=== PATIENT | female | born 1930 | race Caucasian/White ===

== ENCOUNTER 2016-10-12 18:53 | Inpatient (IN) | payer OTHER ==
[~2016-10-12] VITALS: Ht 152.4 cm; Wt 43.0 kg
[~2016-10-12 18:53] MED LIST: GLIP2.5T; MTF1000T; NO NEW MEDS; TRIA1CAP44
[2016-10-13] MEDS ORDERED: KETOROLAC 15 MG INJ ONE (00:54)
[2016-10-13] MEDS ORDERED: morphine 4 MG/ML VIAL ONE ×3 (00:54→05:22)
--- NOTE | 2016-10-13 08:13 | RADRPT ---
PROCEDURE: CT Pelvis without contrast. CLINICAL INDICATION: Status post fall. Pelvic pain. Abnormal x-ray radiograph. TECHNIQUE: CT scan of the pelvis without contrast was performed on a multi-detector high resolutio n CT scanner. The patient was scanned without intravenous contrast. Coronal and sagittal reformatt ed images were obtained from the axial source images. Images were reviewed on a high-resolution PAC S workstation. The total exam CTDI = 4.72 mGy and the DLP = 159.38 mGy-cm. One or more of the following dose reduction techniques were used: - Automated exposure control. - Adjustment of the mA and/or kV according to patient size. - Use of iterative reconstruction technique. COMPARISON: X-ray pelvis 10/13/2016 FINDINGS: CT pelvis: Positive fracture of the right pubis symphysis and right superior pubic ramus is identified. This w as seen on the previous x-ray. Subtle fracture of the left pubis symphysis and the left superior pu bic ramus is seen as well. Only minimal subtle displacement at the fracture sites is seen. Signifi cant adjacent swelling and hemorrhage around the fracture site is present. There probably is another subtle nondisplaced fracture of the anterior margin of the left sacral ala as well. Mild cortical disruption and irregularity with adjacent sclerosis is present at this loca tion. No other bony fracture is seen. The remaining osseous structures are intact. The hip joints are symmetrically unremarkable. The proximal femurs are intact. 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 Mild anterolisthesis of L4 on L5 is present. Significant weeder thinner ior element facet arthropathy of the lower lumbar spine is seen as well. The bladder is distended, but otherwise grossly unremarkable. The uterus is absent. The sigmoid co dwight is distended and filled with air, but is otherwise remarkable for colonic diverticulosis, withou t evidence for diverticulitis. The rectum is unremarkable. The perirectal and presacral spaces are normal. The patient has a large right anterolateral pelvic wall hernia containing mesenteric and om ental fat as well as multiple loops of large and small bowel. No bowel obstruction is seen. Abunda nt atherosclerotic vascular calcifications of the aortoiliac system is identified. The right kidney is partially visualized. No left kidney is visualized. IMPRESSION: 1. Positive fractures of the pubic symphysis and superior pubic ramus bilaterally. 2. Mild adjacent soft tissue swelling and hemorrhage around the fracture site. 3. Sigmoid colon diverticulosis, without evidence for diverticulitis. 4. Benign chronic senescent changes seen elsewhere throughout the study. RPTAT: HMJB .Flex Guallpa MD, Date Time Electronically viewed and signed by .Flex Guallpa MD, on 10/13/2016 07:52 .B/
[2016-10-13 10:00] VITALS: TEMP 98.3
[2016-10-13] MEDS ORDERED: RANI150T5 PO (10:21)
[2016-10-13] MEDS ORDERED: LOSA50TA6 PO (10:22)
[2016-10-13] MEDS ORDERED: GLIM2TAB PO (10:22)
[2016-10-13] MEDS ORDERED: SITA100T8 PO (10:22)
[2016-10-13] MEDS ORDERED: ESCI5TAB PO (10:23)
[2016-10-13] MEDS ORDERED: AMLO5TAB4 PO (10:23)
[2016-10-13] MEDS ORDERED: OXYB5TAB22 PO (10:23)
[2016-10-13] MEDS ORDERED: DIPH1TAB PO (10:24)
[2016-10-13] MEDS ORDERED: CANA100T PO (10:24)
[2016-10-13] MEDS ORDERED: GLUCOSE GEL 15 GRAM TUBE BUCCAL PRN (13:00)
[2016-10-13] MEDS ORDERED: GLUCAGON 1 MG INJ IM PRN (13:00)
[2016-10-13] MEDS ORDERED: ALBUTEROL/IPRATROPIUM (NEB) 3 ML AMP HHN PRN (13:00)
[2016-10-13] MEDS ORDERED: ACETAMINOPHEN 325 MG TAB PO PRN (13:00)
[2016-10-13] MEDS ORDERED: GLUCOSE GEL 15 GRAM TUBE PO PRN ×2 (13:00)
[2016-10-13] MEDS ORDERED: NACL 0.9% 3 ML SYG IV SCH (13:00)
[2016-10-13] MEDS ORDERED: ONDANSETRON 4 MG INJ IV PRN (13:00)
[2016-10-13] MEDS ORDERED: DEXTROSE 50% 50 ML SYRINGE IV PRN ×2 (13:00)
[2016-10-13] MEDS ORDERED: morphine 2 MG INJ IV PRN (13:00)
[2016-10-13 13:40] VITALS: BP 182/80; PULSE 62; RESP 16
[2016-10-13 13:57] VITALS: Ht 152.4 cm; Wt 43.0 kg
[2016-10-13 14:17] LABS: ABNORMAL IP MESSAGE 1; BASOPHIL # 0.1 10^3/ul (0.0-0.1); BASOPHILS % 0.6 % (0.0-2.0); EOSINOPHILS # 0.2 10^3/ul (0.0-0.5); EOSINOPHILS % 2.2 % (0.0-7.0); HEMATOCRIT 33.9 % (37.0-47.0); HEMOGLOBIN 10.6 g/dl (12.0-16.0); LYMPHOCYTES # 1.4 10^3/ul (0.8-2.9); LYMPHOCYTES % 14.5 % (15.0-51.0); MEAN CORPUSCULAR HEMOGLOBIN 28.3 pg (29.0-33.0); MEAN CORPUSCULAR HGB CONC 31.3 g/dl (32.0-37.0); MEAN CORPUSCULAR VOLUME 90.6 fl (82.0-101.0); MEAN PLATELET VOLUME 12.6 fl (7.4-10.4); MONOCYTE # 0.9 10^3/ul (0.3-0.9); NEUTROPHILS % 73.3 % (39.0-77.0); PLATELET COUNT 97 10^3/UL (140-415); RED BLOOD COUNT 3.74 10^6/ul (4.20-5.40); RED CELL DISTRIBUTION WIDTH 13.4 % (11.5-14.5); WHITE BLOOD COUNT 9.5 10^3/ul (4.8-10.8)
[2016-10-13] MEDS: hydrALAzine 20 MG INJ IV PRN ×2 (14:18→21:20)
[2016-10-13] MEDS: LINAGLIPTIN 5 MG TABLET PO SCH (14:27)
[2016-10-13] MEDS: ESCITALOPRAM 10 MG TAB PO SCH (14:27)
[2016-10-13] MEDS: HYDROCODONE/APAP (5/325) TAB PO PRN ×2 (14:28→19:48)
[2016-10-13] MEDS: LOSARTAN 50 MG TAB PO SCH (14:28)
[2016-10-13] MEDS: AMLODIPINE 5 MG TAB PO SCH (14:28)
[2016-10-13 14:34] LABS: ALBUMIN 3.5 g/dl (3.3-4.9); ALBUMIN/GLOBULIN RATIO 1.16; BILIRUBIN,INDIRECT 0.6 mg/dl (0-1.1); BILIRUBIN,TOTAL 0.6 mg/dl (0.2-1.3); CALCIUM 8.5 mg/dl (8.4-10.2); CREATININE 0.7 mg/dl (0.44-1.00); POTASSIUM 3.7 mmol/L (3.5-5.1); TOTAL PROTEIN 6.5 g/dl (6.1-8.1)
[2016-10-13 14:48] LABS: POSITIVE DIFF @See below
--- NOTE | 2016-10-13 15:24 | RADRPT ---
PROCEDURE: XR Pelvis. CLINICAL INDICATION: Trauma. TECHNIQUE: Single frontal AP view of the pelvis was performed. COMPARISON: There are no similar studies submitted for comparison. FINDINGS: There is a fracture within the right pubic body and superior pubic ramus which is minimally impacted but otherwise without displacement. The sacroiliac joints are intact.No destructive osseous lesion is identified. The hips are within normal limits on this single frontal view. The soft tissues are unremarkable. IMPRESSION: Age indeterminate fracture of the right pubic body and superior pubic ramus RPTAT: HIKT .Juanito Kyle MD, Date Time Electronically viewed and signed by .Juanito Kyle MD, on 10/13/2016 05:25 .T/
[2016-10-13] MEDS: INSULIN ASPART [NOVOLOG] 3 ML PEN SC SCH ×3 (17:55→22:14)
[2016-10-13] MEDS: OXYBUTYNIN (XL) 5 MG TAB PO SCH (18:34)
[2016-10-13 20:16] VITALS: BP 163/68; RESP 20
[2016-10-13] MEDS: RANITIDINE 150 MG TAB PO SCH (21:16)
[2016-10-13] MEDS: LORAZEPAM 1 MG TAB PO PRN (22:16)
[2016-10-14] MEDS: ACCU-CHEK XX SCH ×4 (02:00→21:10)
[2016-10-14 02:54] VITALS: BP 120/57; RESP 19
[2016-10-14] MEDS: HYDROCODONE/APAP (5/325) TAB PO PRN (05:04)
[2016-10-14 05:30] LABS: ABNORMAL IP MESSAGE 1; BASOPHIL # 0.1 10^3/ul (0.0-0.1); BASOPHILS % 0.6 % (0.0-2.0); EOSINOPHILS # 0.4 10^3/ul (0.0-0.5); EOSINOPHILS % 3.8 % (0.0-7.0); HEMATOCRIT 32.7 % (37.0-47.0); HEMOGLOBIN 10.4 g/dl (12.0-16.0); LYMPHOCYTES # 1.5 10^3/ul (0.8-2.9); LYMPHOCYTES % 16.3 % (15.0-51.0); MEAN CORPUSCULAR HEMOGLOBIN 28.7 pg (29.0-33.0); MEAN CORPUSCULAR HGB CONC 31.8 g/dl (32.0-37.0); MEAN CORPUSCULAR VOLUME 90.3 fl (82.0-101.0); MEAN PLATELET VOLUME 13.3 fl (7.4-10.4); MONOCYTES % 10.8 % (0.0-11.0); NEUTROPHILS % 67.9 % (39.0-77.0); PLATELET COUNT 99 10^3/UL (140-415); RED BLOOD COUNT 3.62 10^6/ul (4.20-5.40); RED CELL DISTRIBUTION WIDTH 13.7 % (11.5-14.5); WHITE BLOOD COUNT 9.3 10^3/ul (4.8-10.8)
[2016-10-14 05:40] LABS: POSITIVE DIFF @See below
[2016-10-14 05:54] LABS: ALBUMIN 2.9 g/dl (3.3-4.9); ALBUMIN/GLOBULIN RATIO 0.96; BILIRUBIN,INDIRECT 0.4 mg/dl (0-1.1); BILIRUBIN,TOTAL 0.4 mg/dl (0.2-1.3); CALCIUM 8.7 mg/dl (8.4-10.2); CHOL/HDL RATIO 2.5 RATIO; CREATININE 0.73 mg/dl (0.44-1.00); MAGNESIUM 2.1 mg/dl (1.7-2.5); PHOSPHORUS 3.7 mg/dl (2.5-4.9); POTASSIUM 4.1 mmol/L (3.5-5.1); TOTAL PROTEIN 5.9 g/dl (6.1-8.1)
[2016-10-14 07:58] VITALS: BP 103/59; RESP 18
[2016-10-14] MEDS: AMLODIPINE 5 MG TAB PO SCH (08:38)
[2016-10-14] MEDS: LOSARTAN 50 MG TAB PO SCH (08:39)
[2016-10-14] MEDS: LINAGLIPTIN 5 MG TABLET PO SCH (08:45)
[2016-10-14] MEDS: ESCITALOPRAM 10 MG TAB PO SCH (08:45)
[2016-10-14] MEDS: RANITIDINE 150 MG TAB PO SCH ×2 (08:46→20:19)
[2016-10-14] MEDS: OXYBUTYNIN (XL) 5 MG TAB PO SCH (08:46)
[2016-10-14] MEDS: INVOKANA 100 MG PO SCH (08:46)
[2016-10-14] MEDS: INSULIN ASPART [NOVOLOG] 3 ML PEN SC SCH ×4 (08:54→21:00)
[2016-10-14] MEDS ORDERED: ENOXAPARIN 40 MG/0.4 ML SYG SC SCH (10:30)
[2016-10-14] MEDS: ENOXAPARIN 30 MG/0.3 ML SYG SC SCH (12:53)
[2016-10-14] MEDS ORDERED: SENNA TAB PO PRN (13:00)
[2016-10-14] MEDS ORDERED: IBUPROFEN 400 MG TAB PO PRN (13:00)
[2016-10-14 15:26] VITALS: BP 134/58; RESP 22
[2016-10-14 19:10] VITALS: BP 146/67; RESP 21
--- NOTE | 2016-10-14 19:45 | HP ---
Date/Time of Note Date/Time of Note DATE: 10/13/16 TIME: 17:30 Assessment/Plan VTE Prophylaxis VTE Prophylaxis Intervention: LMWH Lines/Catheters IV Catheter Type (from Nrs): Saline Lock Urinary Cath still in place: No Assessment/Plan Assessment/Plan Pelvic fracture - Admit to MS - pain control - admission orders are done - PT - SP Mechanical fall - cont to monitor. - Diabetes - Glycemic control - Hgb - - Dietary/environmental educator consult - Hypertension - resume home meds - Dyslipidemia - Atorvastatin 10 mg po Q hs - AM lipid panel - 1800 SURAJ ada low cholesterol diet - Gastritis - Ranitidine - Osteoporosis - Lovenox for DVT prophylaxis Further recommendations depend upon patient clinical course. Plan of care dw Dr carroll/staff HPI/ROS Admit Date/Time Admit Date/Time Oct 13, 2016 at 12:28 Hx of Present Illness This is a 85 years old female was admitted with bilateral groin pain and pelvis pain sec to fall at home. During assessment, patient is alert, responsive, follows commands. Denies any chest pain, shortness of breath, dizziness, palpitations, fever, headache, focal weakness or numbness, abdominal pain . nausea/ vomitting, recent travel. Patient is admitted under Dr Carroll for further treatment and evaluation. Not a surgery candidate per ortho. ROS Eyes: no complaints ENT: no complaints Respiratory: no complaints Cardiovascular: no complaints Gastrointestinal: no complaints Genitourinary: no complaints Musculoskeletal: bone/joint pain Neurologic: no complaints PMH/Family/Social Past Medical History gastritis Osteoporosis Medical History: diabetes, high cholesterol, hypertension, other (gastritis) Past Surgical History TABSHO Past Surgical Hx: appendectomy, cholecystectomy, other (Hernia repair) Family History Significant Family History: no pertinent family hx Social History Alcohol Use: none Smoking Status: Former smoker Drug Use: none Exam/Review of Systems Vital Signs Vitals Vital Signs Date Time Temp Pulse Resp B/P Pulse Ox O2 Delivery O2 Flow Rate FiO2 10/13/16 13:40 98.3 62 16 182/80 95 Room Air Exam Constitutional: alert, oriented, well developed Respiratory: clear to auscultation, normal air movement Cardiovascular: nl pulses, regular rate and rhythm Gastrointestinal: non-tender, soft Musculoskeletal: nl extremities to inspection, other, range of motion ( restricted bilaterally.) Extremities: normal pulses Neurological: nl mental status, nl speech Labs Result Diagram: 8/26/17 1350 10/13/16 1350 Medications Medications Current Medications Ondansetron HCl (Zofran Inj) 4 mg Q6H PRN IV NAUSEA AND/OR VOMITING; Start at 13:00 Acetaminophen (Tylenol Tab) 650 mg Q6H PRN PO PAIN LEVEL 1-3 OR FEVER; Start at 13:00 Morphine Sulfate (morphine) 2 mg Q4H PRN IV SEVERE PAIN LEVEL 7-10; Start 10/13 at 13:00 Diagnostic Test (Pha) (Accu-Chek) 1 ea 02 XX ; Start 10/14/16 at 02:00 Amlodipine Besylate (Norvasc) 5 mg DAILY PO Last administered on 10/13/16 14: 28; Admin Dose 5 MG; Start 10/13/16 at 13:00 Escitalopram Oxalate (Lexapro) 5 mg DAILY PO Last administered on 10/13/16 14: 27; Admin Dose 5 MG; Start 10/13/16 at 13:00 Losartan Potassium (Cozaar) 50 mg DAILY PO Last administered on 10/13/16 14:28 ; Admin Dose 50 MG; Start 10/13/16 at 13:00 Oxybutynin Chloride (Ditropan Xl) 5 mg DAILY PO ; Start 10/13/16 at 14:00 Ranitidine HCl (Zantac) 150 mg Q12 PO ; Start 10/13/16 at 21:00 Patient Own Medication 1 ea DAILY PO ; Start 10/14/16 at 09:00 Linagliptin (Tradjenta) 5 mg DAILY PO Last administered on 10/13/16 14:27; Admin Dose 5 MG; Start 10/13/16 at 14:00 Diagnostic Test (Pha) (Accu-Chek) 1 ea 02 XX ; Start 10/14/16 at 02:00 Hydralazine HCl (Apresoline) 10 mg Q4H PRN IV SBP > 160 Last administered on 14:18; Admin Dose 10 MG; Start 10/13/16 at 13:00 Acetaminophen/ Hydrocodone Bitart ([place] (5/325)) 1 tab Q4H PRN PO PAIN Last administered on 10/13/16 14:28; Admin Dose 1 TAB; Start 10/13/16 at 13:00 Miscellaneous Information 1 ea NOTE XX ; Start 10/13/16 at 13:00 Glucose (Glutose) 15 gm Q15M PRN PO DECREASED GLUCOSE; Start 10/13/16 at 13:00 Glucose (Glutose) 22.5 gm Q15M PRN PO DECREASED GLUCOSE; Start 10/13/16 at 13: 00 Dextrose (D50w Syringe) 25 ml Q15M PRN IV DECREASED GLUCOSE; Start 10/13/16 at 13:00 Dextrose (D50w Syringe) 50 ml Q15M PRN IV DECREASED GLUCOSE; Start 10/13/16 at 13:00 Glucagon (Glucagen) 1 mg Q15M PRN IM DECREASED GLUCOSE; Start 10/13/16 at 13:00 Glucose (Glutose) 15 gm Q15M PRN BUCCAL DECREASED GLUCOSE; Start 10/13/16 at 13 :00 Lorazepam (Ativan) 1 mg QHS PRN PO INSOMNIA; Start 10/13/16 at 16:30 Procedures Procedures PROCEDURE: XR Pelvis. CLINICAL INDICATION: Trauma. TECHNIQUE: Single frontal AP view of the pelvis was performed. COMPARISON: There are no similar studies submitted for comparison. FINDINGS: There is a fracture within the right pubic body and superior pubic ramus which is minimally impacted but otherwise without displacement. The sacroiliac joints are intact.No destructive osseous lesion is identified. The hips are within normal limits on this single frontal view. The soft tissues are unremarkable. IMPRESSION: Age indeterminate fracture of the right pubic body and superior pubic ramus PROCEDURE: CT Pelvis without contrast. CLINICAL INDICATION: Status post fall. Pelvic pain. Abnormal x-ray radiograph. One or more of the following dose reduction techniques were used: - Automated exposure control. - Adjustment of the mA and/or kV according to patient size. - Use of iterative reconstruction technique. COMPARISON: X-ray pelvis 10/13/2016 IMPRESSION: 1. Positive fractures of the pubic symphysis and superior pubic ramus bilaterally. 2. Mild adjacent soft tissue swelling and hemorrhage around the fracture site. 3. Sigmoid colon diverticulosis, without evidence for diverticulitis. 4. Benign chronic senescent changes seen elsewhere throughout the study. PERLA WEI Oct 13, 2016 17:40
[2016-10-14] MEDS: ATORVASTATIN 10 MG TAB PO SCH (20:19)
[2016-10-14 20:51] LABS: CHOL/HDL RATIO 2.6 RATIO
[2016-10-14] MEDS: LORAZEPAM 1 MG TAB PO PRN (22:50)
[2016-10-15 05:33] LABS: ABNORMAL IP MESSAGE 1; BASOPHIL # 0.1 10^3/ul (0.0-0.1); BASOPHILS % 0.7 % (0.0-2.0); EOSINOPHILS # 0.3 10^3/ul (0.0-0.5); EOSINOPHILS % 3.2 % (0.0-7.0); HEMATOCRIT 31.6 % (37.0-47.0); HEMOGLOBIN 10.3 g/dl (12.0-16.0); LYMPHOCYTES % 10.8 % (15.0-51.0); MEAN CORPUSCULAR HEMOGLOBIN 29.6 pg (29.0-33.0); MEAN CORPUSCULAR HGB CONC 32.6 g/dl (32.0-37.0); MEAN CORPUSCULAR VOLUME 90.8 fl (82.0-101.0); MONOCYTE # 0.9 10^3/ul (0.3-0.9); MONOCYTES % 9.8 % (0.0-11.0); NEUTROPHILS % 75.1 % (39.0-77.0); PLATELET COUNT 91 10^3/UL (140-415); RED BLOOD COUNT 3.48 10^6/ul (4.20-5.40); RED CELL DISTRIBUTION WIDTH 13.6 % (11.5-14.5)
[2016-10-15 05:43] LABS: POSITIVE DIFF @See below
[2016-10-15 06:27] LABS: CALCIUM 8.1 mg/dl (8.4-10.2); CREATININE 0.7 mg/dl (0.44-1.00); POTASSIUM 3.7 mmol/L (3.5-5.1)
[2016-10-15] MEDS: HYDROCODONE/APAP (5/325) TAB PO PRN ×4 (06:56→18:11)
[2016-10-15 07:28] VITALS: BP 130/60; RESP 20
[2016-10-15] MEDS: LOSARTAN 50 MG TAB PO SCH (09:00)
[2016-10-15] MEDS: INSULIN ASPART [NOVOLOG] 3 ML PEN SC SCH ×4 (10:35→20:51)
[2016-10-15] MEDS: ENOXAPARIN 30 MG/0.3 ML SYG SC SCH (10:36)
[2016-10-15] MEDS: OXYBUTYNIN (XL) 5 MG TAB PO SCH (10:46)
[2016-10-15] MEDS: RANITIDINE 150 MG TAB PO SCH ×2 (10:50→19:40)
[2016-10-15] MEDS: AMLODIPINE 5 MG TAB PO SCH (10:50)
[2016-10-15] MEDS: LINAGLIPTIN 5 MG TABLET PO SCH (10:51)
[2016-10-15] MEDS: ESCITALOPRAM 10 MG TAB PO SCH (10:51)
[2016-10-15] MEDS: INVOKANA 100 MG PO SCH (11:13)
[2016-10-15 13:20] VITALS: BP 163/70; PULSE 64; RESP 16
--- NOTE | 2016-10-15 16:22 | PN ---
Date/Time of Note Date/Time of Note DATE: 10/15/16 TIME: 16:14 Assessment/Plan VTE Prophylaxis VTE Prophylaxis Intervention: SCD's Lines/Catheters IV Catheter Type (from Nrsg): Saline Lock Central line still needed: Yes Urinary Cath still in place: No Assessment/Plan Chief Complaint/Hosp Course Patient is awake alert however according to patient's son who is at the bedside patient is hallucinating, patient is able to remember her home medication. Continue one-to-one sitter. Patient's altered level of consciousness could be due to fracture or morphine that was given for pain. Assessment/Plan - Altered level status secondary to fracture/reaction to morphine. Continue one -to-one sitter. - Fractures of the pubic symphysis and superior pubic ramus bilaterally. Continue pain management physical therapy. Acute rehab evaluation when patient mentation improves. - Diabetes mellitus type 2, continue Tradjenta, metformin, NovoLog per mild algorithm sliding scale. - Hypertension, continue Cozaar - Dyslipidemia, continue statin - Osteoporosis Patient's condition and plan of care was discussed with patient's son at the bedside Further recommendations depend upon patient clinical course. Plan of care discussed with Dr. Carroll. Problems: Exam/Review of Systems Vital Signs Vitals Vital Signs Date Time Temp Pulse Resp B/P Pulse Ox O2 Delivery O2 Flow Rate FiO2 10/15/16 13:20 97.5 64 16 163/70 99 Room Air Intake and Output 10/14/16 10/14/16 10/15/16 15:00 23:00 07:00 Intake Total 500 ml 520 ml Output Total 3 ml Balance 497 ml 520 ml Exam Constitutional: alert Psych: confusion Head: normocephalic Neck: supple Respiratory: normal air movement Cardiovascular: nl pulses Gastrointestinal: non-tender, soft Extremities: normal pulses Results Result Diagram: 10/15/16 0435 10/15/16 0435 Results 24 hrs Laboratory Tests Test 10/14/16 17:52 10/14/16 20:15 10/14/16 20:25 10/15/16 04:35 Bedside Glucose 171 145 Triglycerides Level 71 Cholesterol Level 147 LDL Cholesterol, Calculated 78 HDL Cholesterol 55 Cholesterol/HDL Ratio 2.6 White Blood Count 9.0 Red Blood Count 3.48 L Hemoglobin 10.3 L Hematocrit 31.6 L Mean Corpuscular Volume 90.8 Mean Corpuscular Hemoglobin 29.6 Mean Corpuscular Hemoglobin Concent 32.6 Red Cell Distribution Width 13.6 Platelet Count 91 L Mean Platelet Volume 14.0 H Neutrophils % 75.1 Lymphocytes % 10.8 L Monocytes % 9.8 Eosinophils % 3.2 Basophils % 0.7 Nucleated Red Blood Cells % 0.0 Neutrophils # (Manual) 6.7 Lymphocytes # 1.0 Monocytes # 0.9 Eosinophils # 0.3 Basophils # 0.1 Nucleated Red Blood Cells # 0.0 Sodium Level 140 Potassium Level 3.7 Chloride Level 101 Carbon Dioxide Level 29 Anion Gap 14 Blood Urea Nitrogen 22 H Creatinine 0.70 Glucose Level 234 H Calcium Level 8.1 L Test 10/15/16 09:19 10/15/16 12:58 Bedside Glucose 150 97 Medications Medications Current Medications Ondansetron HCl (Zofran Inj) 4 mg Q6H PRN IV NAUSEA AND/OR VOMITING; Start at 13:00 Acetaminophen (Tylenol Tab) 650 mg Q6H PRN PO PAIN LEVEL 1-3 OR FEVER; Start at 13:00 Morphine Sulfate (morphine) 2 mg Q4H PRN IV SEVERE PAIN LEVEL 7-10; Start 10/13 at 13:00 Diagnostic Test (Pha) (Accu-Chek) 1 ea 02 XX ; Start 10/14/16 at 02:00 Amlodipine Besylate (Norvasc) 5 mg DAILY PO Last administered on 10/15/16 10: 50; Admin Dose 5 MG; Start 10/13/16 at 13:00 Escitalopram Oxalate (Lexapro) 5 mg DAILY PO Last administered on 10/15/16 10: 51; Admin Dose 5 MG; Start 10/13/16 at 13:00 Losartan Potassium (Cozaar) 50 mg DAILY PO Last administered on 10/13/16 14:28 ; Admin Dose 50 MG; Start 10/13/16 at 13:00 Oxybutynin Chloride (Ditropan Xl) 5 mg DAILY PO Last administered on 10/15/16 10:46; Admin Dose 5 MG; Start 10/13/16 at 14:00 Ranitidine HCl (Zantac) 150 mg Q12 PO Last administered on 10/15/16 10:50; Admin Dose 150 MG; Start 10/13/16 at 21:00 Patient Own Medication 1 ea DAILY PO Last administered on 10/15/16 11:13; Admin Dose 1 EA; Start 10/14/16 at 09:00 Linagliptin (Tradjenta) 5 mg DAILY PO Last administered on 10/15/16 10:51; Admin Dose 5 MG; Start 10/13/16 at 14:00 Diagnostic Test (Pha) (Accu-Chek) 1 ea 02 XX ; Start 10/14/16 at 02:00 Hydralazine HCl (Apresoline) 10 mg Q4H PRN IV SBP > 160 Last administered on 21:20; Admin Dose 10 MG; Start 10/13/16 at 13:00 Acetaminophen/ Hydrocodone Bitart ([place] (5/325)) 1 tab Q4H PRN PO PAIN Last administered on 10/15/16 14:03; Admin Dose 1 TAB; Start 10/13/16 at 13:00 Miscellaneous Information 1 ea NOTE XX ; Start 10/13/16 at 13:00 Glucose (Glutose) 15 gm Q15M PRN PO DECREASED GLUCOSE; Start 10/13/16 at 13:00 Glucose (Glutose) 22.5 gm Q15M PRN PO DECREASED GLUCOSE; Start 10/13/16 at 13: 00 Dextrose (D50w Syringe) 25 ml Q15M PRN IV DECREASED GLUCOSE; Start 10/13/16 at 13:00 Dextrose (D50w Syringe) 50 ml Q15M PRN IV DECREASED GLUCOSE; Start 10/13/16 at 13:00 Glucagon (Glucagen) 1 mg Q15M PRN IM DECREASED GLUCOSE; Start 10/13/16 at 13:00 Glucose (Glutose) 15 gm Q15M PRN BUCCAL DECREASED GLUCOSE; Start 10/13/16 at 13 :00 Lorazepam (Ativan) 1 mg QHS PRN PO INSOMNIA Last administered on 10/14/16 22: 50; Admin Dose 1 MG; Start 10/13/16 at 16:30 Enoxaparin Sodium (Lovenox) 30 mg DAILY SC Last administered on 10/15/16 10:36 ; Admin Dose 30 MG; Start 10/14/16 at 10:30 Ibuprofen (Motrin) 400 mg TID PRN PO PAIN OR TEMP ABOVE 38C Last administered on 10/14/16 13:16; Admin Dose 400 MG; Start 10/14/16 at 13:00 Senna (Senokot) 1 tab DAILY PRN PO CONSTIPATION; Start 10/14/16 at 13:00 Atorvastatin Calcium (Lipitor) 10 mg HS PO Last administered on 10/14/16t 20:19 ; Admin Dose 10 MG; Start 10/14/16 at 21:00 BRAEDEN MONTERO Oct 15, 2016 16:22
[2016-10-15] MEDS: LORAZEPAM 1 MG TAB PO PRN (19:40)
[2016-10-15] MEDS: ATORVASTATIN 10 MG TAB PO SCH (19:40)
[2016-10-15 20:22] VITALS: BP 116/61; RESP 20
[2016-10-15] MEDS ORDERED: QUETIAPINE 25 MG TAB PO SCH (23:00)
[2016-10-16] MEDS: ACCU-CHEK XX SCH ×2 (01:31→01:32)
[2016-10-16 01:59] VITALS: BP 108/59; RESP 19
[2016-10-16 05:29] LABS: ABNORMAL IP MESSAGE 1; BASOPHILS % 0.4 % (0.0-2.0); EOSINOPHILS # 0.2 10^3/ul (0.0-0.5); EOSINOPHILS % 1.9 % (0.0-7.0); HEMATOCRIT 32.9 % (37.0-47.0); HEMOGLOBIN 10.5 g/dl (12.0-16.0); LYMPHOCYTES % 10.7 % (15.0-51.0); MEAN CORPUSCULAR HEMOGLOBIN 28.8 pg (29.0-33.0); MEAN CORPUSCULAR HGB CONC 31.9 g/dl (32.0-37.0); MEAN CORPUSCULAR VOLUME 90.4 fl (82.0-101.0); MEAN PLATELET VOLUME 13.5 fl (7.4-10.4); MONOCYTE # 0.9 10^3/ul (0.3-0.9); MONOCYTES % 9.6 % (0.0-11.0); NEUTROPHILS % 77.1 % (39.0-77.0); PLATELET COUNT 94 10^3/UL (140-415); RED BLOOD COUNT 3.64 10^6/ul (4.20-5.40); RED CELL DISTRIBUTION WIDTH 13.5 % (11.5-14.5); WHITE BLOOD COUNT 9.4 10^3/ul (4.8-10.8)
[2016-10-16 05:38] LABS: POSITIVE DIFF @See below
[2016-10-16 05:57] LABS: CALCIUM 8.4 mg/dl (8.4-10.2); CREATININE 0.85 mg/dl (0.44-1.00); POTASSIUM 4.6 mmol/L (3.5-5.1)
--- NOTE | 2016-10-16 07:43 | ERA ---
ER Documentation Chief Complaint Date/Time DATE: 10/16/16 TIME: 07:31 Chief Complaint PT had a slip and fall injurying pelvic and bilateral groin HPI This 85 year old female comes in with her son by ambulance after one of he feet slipped in a grocery store and she ended up in a front to back "splits" position. No Loc, head injury or other injury. Pain of bilateral inferior groin muscle area/pelvis. ROS All systems reviewed and are negative except as per history of present illness. Medications Home Meds Reported Medications Diphenoxylate HCl/Atropine (Lomotil 2.5-0.025 mg Tablet) 1 Each Tablet, 1 TAB PO Q8 Y for DIARRHEA, TAB 10/13/16 Canagliflozin (Invokana) 100 Mg Tablet, 100 MG PO DAILY, TAB 10/13/16 Oxybutynin Chloride* (Ditropan* XL) 5 Mg Tabsr, 5 MG PO DAILY, TAB.SA 10/13/16 Escitalopram Oxalate* (Lexapro*) 5 Mg Tablet, 5 MG PO DAILY, #30 TAB 10/13/16 Amlodipine Besylate* (Norvasc*) 5 Mg Tablet, 5 MG PO DAILY, TAB 10/13/16 Losartan Potassium* (Losartan Potassium*) 50 Mg Tablet, 50 MG PO DAILY, TAB 10/13/16 Glimepiride* (Glimepiride*) 2 Mg Tablet, 2 MG PO WITH BREAKFAST DINNE, TAB 10/13/16 Sitagliptin* (Januvia*) 100 Mg Tablet, 100 MG PO DAILY, #30 TAB 10/13/16 Ranitidine Hcl* (Ranitidine Hcl*) 150 Mg Tablet, 150 MG PO Q12, #60 TAB 10/13/16 Discontinued Reported Medications [No New Meds] No Conflict Check 07/20/11 Triamterene-HCTZ (Triamterene-HCTZ) 1 Cap Capsule 04/15/10 Glipizide* (Glucotrol XL*) 2.5 Mg Tabsr 04/15/10 Metformin* (Glucophage*) 1,000 Mg Tablet 04/15/10 Allergies Allergies: Coded Allergies: No Known Allergies (Verified Allergy, Mild, 10/13/16) PMhx/Soc History of Surgery: Yes (appendectomy, TAHBSO, cholecystectomy) Anesthesia Reaction: No Hx Neurological Disorder: No Hx Respiratory Disorders: No Hx Cardiac Disorders: Yes (HTN, ) Hx Psychiatric Problems: Yes (anxiety) Hx Miscellaneous Medical Probl: No Hx Alcohol Use: No Hx Substance Use: No Hx Tobacco Use: No Smoking Status: Former smoker Physical Exam Vitals Vital Signs Date Time Temp Pulse Resp B/P Pulse Ox O2 Delivery O2 Flow Rate FiO2 10/13/16 10:00 98.3 64 16 137/60 100 Room Air 10/13/16 07:32 98.1 57 16 119/59 100 Room Air 10/12/16 19:08 98.3 66 18 133/63 98 Physical Exam Const: [] Miild distress, pain Head: Atraumatic Eyes: Normal Conjunctiva ENT: Normal External Ears, Nose and Mouth. Neck: Full range of motion..~ No meningismus. Resp: Clear to auscultation bilaterally Cardio: Regular rate and rhythm, no murmurs Abd: Soft, non tender, non distended. Normal bowel sounds Skin: No petechiae or rashes Back: No midline or flank tenderness Ext: No cyanosis, tenderness to bilateral inguinal area an R pubic bone area , pules intact all 4 limbs Neur: Awake and alert and oriented x 3, no focal deficits Psych: Normal Mood and Affect Result Diagram: 10/16/1644710/16/16447 Results 24 hrs Laboratory Tests Test 10/13/16 01:17 10/13/16 10:01 10/13/16 10:44 Bedside Glucose 73mg/dL 57mg/dL 131mg/dL Current Medications Medications (Trade) Dose Ordered Sig/Rickie Route PRN Reason Start Time Stop Time Status Last Admin Dose Admin Ketorolac Tromethamine (Toradol) 15 mg STK-MED ONCE .ROUTE 10/13/16 00:54 10/13/16 09:02 DC Morphine Sulfate (morphine) 4 mg STK-MED ONCE .ROUTE 10/13/16 00:54 10/13/16 09:03 DC Morphine Sulfate (morphine) 4 mg STK-MED ONCE .ROUTE 10/13/16 03:58 10/13/16 09:07 DC Morphine Sulfate (morphine) 4 mg STK-MED ONCE .ROUTE 10/13/16 05:22 10/13/16 09:12 DC Procedures/MDM Pubic bone fractures and intractable pain from leg slippage injury. X-ray suspicious for fracture confirmed with CT. Spoke with Dr. Vale, orthopedist, will consult on the patient. Required frequent doses of pain medication in ER to control pain even at rest. 3 4 mg doses of IV morphine and 15 mg IV toradol given. Hydrated with normal saline. Also with thrombocytopenia and diabetes. Admitting for pain control. Pelvis XR: Possible R pubic ramus fracture. No foreign bodies mild stool retention in lower colon. CT Pelvis: Upper and lower R pubic ramus fractures with minimal displacement. No foreign bodies. Departure Diagnosis: Primary Impression: Pubic ramus fracture Additional Impressions: Intractable pain Anemia Thrombocytopenia Condition: Stable THAO GARCIA DO Oct 16, 2016 07:42
[2016-10-16 08:41] VITALS: BP 141/87; RESP 20
[2016-10-16] MEDS: OXYBUTYNIN (XL) 5 MG TAB PO SCH (08:57)
[2016-10-16] MEDS: LOSARTAN 50 MG TAB PO SCH (08:57)
[2016-10-16] MEDS: ESCITALOPRAM 10 MG TAB PO SCH (08:57)
[2016-10-16] MEDS: RANITIDINE 150 MG TAB PO SCH ×2 (08:57→21:11)
[2016-10-16] MEDS: LINAGLIPTIN 5 MG TABLET PO SCH (08:58)
[2016-10-16] MEDS: AMLODIPINE 5 MG TAB PO SCH (08:58)
[2016-10-16] MEDS: ENOXAPARIN 30 MG/0.3 ML SYG SC SCH (09:01)
[2016-10-16] MEDS: INVOKANA 100 MG PO SCH (09:04)
[2016-10-16] MEDS: INSULIN ASPART [NOVOLOG] 3 ML PEN SC SCH ×4 (09:06→21:00)
[2016-10-16] MEDS ORDERED: IBUPROFEN 400 MG TAB PO PRN (14:00)
--- NOTE | 2016-10-16 14:00 | PN ---
Date/Time of Note Date/Time of Note DATE: 10/16/16 TIME: 13:55 Assessment/Plan VTE Prophylaxis VTE Prophylaxis Intervention: LMWH Lines/Catheters IV [facility]from [facility] Urinary Cath still in place: No Assessment/Plan Chief Complaint/Hosp Course Assessment and plan:85 year old female was admitted with bilateral groin pain and pelvis pain sec to fall at home, with positive fractures of the pubic symphysis and superior pubic ramus bilaterally. - Fractures of the pubic symphysis and superior pubic ramus bilaterally. -Continue pain management, will avoid opiates and continue with ibuprofen 600 p.o. 3 times daily as needed, continue physical therapy. -Acute rehab evaluation when patient mentation improves. - Altered level status: Likely secondary to fracture/reaction to morphine. Slowly improving -Avoid opiates, continue one-to-one sitter. - Diabetes mellitus type 2 - continue Tradjenta, metformin, NovoLog per mild algorithm sliding scale. - Hypertension, continue Cozaar - Dyslipidemia, continue statin - Osteoporosis: Monitor Problems: Subjective 24 Hr Interval Summary Free Text/Dictation Patient worked with physical therapy earlier today. Still with some hallucinations, but improved since yesterday so less occurrence today. Exam/Review of Systems Vital Signs Vitals Vital Signs Date Time Temp Pulse Resp B/P Pulse Ox O2 Delivery O2 Flow Rate FiO2 10/16/16 08:41 97.6 110 20 141/87 90 10/15/16 13:20 Room Air Intake and Output 10/15/16 10/15/16 10/16/16 15:00 23:00 07:00 Intake Total 800 ml 460 ml Output Total 900 ml 200 ml Balance -100 ml 260 ml Exam Constitutional: Lying in bed, Psych: less confusion Head: normocephalic Neck: supple Respiratory: normal air movement Cardiovascular: nl pulses Gastrointestinal: non-tender, soft Extremities: normal pulses Results Result Diagram: 10/16/16 0448 10/16/16 0448 Results 24 hrs Laboratory Tests Test 10/15/16 17:37 10/15/16 20:50 10/16/16 04:48 10/16/16 08:50 Bedside Glucose 129 138 206 White Blood Count 9.4 Red Blood Count 3.64 L Hemoglobin 10.5 L Hematocrit 32.9 L Mean Corpuscular Volume 90.4 Mean Corpuscular Hemoglobin 28.8 L Mean Corpuscular Hemoglobin Concent 31.9 L Red Cell Distribution Width 13.5 Platelet Count 94 L Mean Platelet Volume 13.5 H Neutrophils % 77.1 H Lymphocytes % 10.7 L Monocytes % 9.6 Eosinophils % 1.9 Basophils % 0.4 Nucleated Red Blood Cells % 0.0 Neutrophils # (Manual) 7.2 Lymphocytes # 1.0 Monocytes # 0.9 Eosinophils # 0.2 Basophils # 0.0 Nucleated Red Blood Cells # 0.0 Sodium Level 144 Potassium Level 4.6 Chloride Level 101 Carbon Dioxide Level 30 Anion Gap 18 H Blood Urea Nitrogen 20 Creatinine 0.85 Glucose Level 197 Calcium Level 8.4 Test 10/16/16 12:52 Bedside Glucose 107 Medications Medications Current Medications Ondansetron HCl (Zofran Inj) 4 mg Q6H PRN IV NAUSEA AND/OR VOMITING; Start at 13:00 Acetaminophen (Tylenol Tab) 650 mg Q6H PRN PO PAIN LEVEL 1-3 OR FEVER; Start at 13:00 Diagnostic Test (Pha) (Accu-Chek) 1 ea 02 XX ; Start 10/14/16 at 02:00 Amlodipine Besylate (Norvasc) 5 mg DAILY PO Last administered on 10/16/16 08: 58; Admin Dose 5 MG; Start 10/13/16 at 13:00 Escitalopram Oxalate (Lexapro) 5 mg DAILY PO Last administered on 10/16/16 08: 57; Admin Dose 5 MG; Start 10/13/16 at 13:00 Losartan Potassium (Cozaar) 50 mg DAILY PO Last administered on 10/16/16 08:57 ; Admin Dose 50 MG; Start 10/13/16 at 13:00 Oxybutynin Chloride (Ditropan Xl) 5 mg DAILY PO Last administered on 10/16/16 08:57; Admin Dose 5 MG; Start 10/13/16 at 14:00 Ranitidine HCl (Zantac) 150 mg Q12 PO Last administered on 10/16/16 08:57; Admin Dose 150 MG; Start 10/13/16 at 21:00 Patient Own Medication 1 ea DAILY PO Last administered on 10/16/16 09:04; Admin Dose 1 EA; Start 10/14/16 at 09:00 Linagliptin (Tradjenta) 5 mg DAILY PO Last administered on 10/16/16 08:58; Admin Dose 5 MG; Start 10/13/16 at 14:00 Diagnostic Test (Pha) (Accu-Chek) 1 ea 02 XX ; Start 10/14/16 at 02:00 Hydralazine HCl (Apresoline) 10 mg Q4H PRN IV SBP > 160 Last administered on 21:20; Admin Dose 10 MG; Start 10/13/16 at 13:00 Acetaminophen/ Hydrocodone Bitart ([place] (5/325)) 1 tab Q4H PRN PO PAIN Last administered on 10/15/16 18:11; Admin Dose 1 TAB; Start 10/13/16 at 13:00 Miscellaneous Information 1 ea NOTE XX ; Start 10/13/16 at 13:00 Glucose (Glutose) 15 gm Q15M PRN PO DECREASED GLUCOSE; Start 10/13/16 at 13:00 Glucose (Glutose) 22.5 gm Q15M PRN PO DECREASED GLUCOSE; Start 10/13/16 at 13: 00 Dextrose (D50w Syringe) 25 ml Q15M PRN IV DECREASED GLUCOSE; Start 10/13/16 at 13:00 Dextrose (D50w Syringe) 50 ml Q15M PRN IV DECREASED GLUCOSE; Start 10/13/16 at 13:00 Glucagon (Glucagen) 1 mg Q15M PRN IM DECREASED GLUCOSE; Start 10/13/16 at 13:00 Glucose (Glutose) 15 gm Q15M PRN BUCCAL DECREASED GLUCOSE; Start 10/13/16 at 13 :00 Lorazepam (Ativan) 1 mg QHS PRN PO INSOMNIA Last administered on 10/15/16 19: 40; Admin Dose 1 MG; Start 10/13/16 at 16:30 Enoxaparin Sodium (Lovenox) 30 mg DAILY SC Last administered on 10/16/16 09:01 ; Admin Dose 30 MG; Start 10/14/16 at 10:30 Ibuprofen (Motrin) 400 mg TID PRN PO PAIN OR TEMP ABOVE 38C Last administered on 10/14/16 13:16; Admin Dose 400 MG; Start 10/14/16 at 13:00 Senna (Senokot) 1 tab DAILY PRN PO CONSTIPATION; Start 10/14/16 at 13:00 Atorvastatin Calcium (Lipitor) 10 mg HS PO Last administered on 10/15/16 19:40 ; Admin Dose 10 MG; Start 10/14/16 at 21:00 Quetiapine Fumarate (Seroquel) 25 mg HS PO Last administered on 10/16/16 00:37 ; Admin Dose 25 MG; Start 10/15/16 at 23:00 NEO ALMANZA Oct 16, 2016 14:00
[2016-10-16] MEDS ORDERED: IBUPROFEN 600 MG TAB PO PRN (14:30)
[2016-10-16 14:55] VITALS: BP 127/65; RESP 20
[2016-10-16 19:00] VITALS: BP 109/53; RESP 18
[2016-10-16] MEDS ORDERED: INSULIN GLARGINE [LANtus] 3 ML PEN SC SCH (20:00)
[2016-10-16] MEDS ORDERED: QUETIAPINE 25 MG TAB PO SCH ×2 (21:00)
[2016-10-16] MEDS: ATORVASTATIN 10 MG TAB PO SCH (21:11)
[2016-10-16] MEDS: LORAZEPAM 1 MG TAB PO PRN (23:26)
[2016-10-17] MEDS: ACCU-CHEK XX SCH (01:58)
[2016-10-17] MEDS ORDERED: ACCU-CHEK XX SCH ×2 (02:00)
[2016-10-17 05:27] LABS: BASOPHIL # 0.1 10^3/ul (0.0-0.1); BASOPHILS % 0.5 % (0.0-2.0); EOSINOPHILS # 0.4 10^3/ul (0.0-0.5); EOSINOPHILS % 3.9 % (0.0-7.0); HEMATOCRIT 29.6 % (37.0-47.0); HEMOGLOBIN 9.5 g/dl (12.0-16.0); LYMPHOCYTES # 1.7 10^3/ul (0.8-2.9); LYMPHOCYTES % 18.8 % (15.0-51.0); MEAN CORPUSCULAR HEMOGLOBIN 28.7 pg (29.0-33.0); MEAN CORPUSCULAR HGB CONC 32.1 g/dl (32.0-37.0); MEAN CORPUSCULAR VOLUME 89.4 fl (82.0-101.0); MONOCYTE # 1.2 10^3/ul (0.3-0.9); MONOCYTES % 13.2 % (0.0-11.0); NEUTROPHILS % 63.2 % (39.0-77.0); PLATELET COUNT 106 10^3/UL (140-415); RED BLOOD COUNT 3.31 10^6/ul (4.20-5.40); RED CELL DISTRIBUTION WIDTH 13.9 % (11.5-14.5); WHITE BLOOD COUNT 9.2 10^3/ul (4.8-10.8)
[2016-10-17 05:53] LABS: CALCIUM 8.4 mg/dl (8.4-10.2); CREATININE 0.71 mg/dl (0.44-1.00); MAGNESIUM 2.2 mg/dl (1.7-2.5); PHOSPHORUS 3.5 mg/dl (2.5-4.9); POTASSIUM 3.2 mmol/L (3.5-5.1)
[2016-10-17] MEDS: INSULIN ASPART [NOVOLOG] 3 ML PEN SC SCH ×3 (07:50→17:54)
[2016-10-17 08:17] VITALS: BP 138/63; RESP 18
[2016-10-17] MEDS: ENOXAPARIN 30 MG/0.3 ML SYG SC SCH (08:45)
[2016-10-17] MEDS: OXYBUTYNIN (XL) 5 MG TAB PO SCH (08:47)
[2016-10-17] MEDS: RANITIDINE 150 MG TAB PO SCH ×2 (08:47→20:10)
[2016-10-17] MEDS: ESCITALOPRAM 10 MG TAB PO SCH (08:47)
[2016-10-17] MEDS: LINAGLIPTIN 5 MG TABLET PO SCH (08:47)
[2016-10-17] MEDS: AMLODIPINE 5 MG TAB PO SCH (08:48)
[2016-10-17] MEDS: INVOKANA 100 MG PO SCH (08:48)
[2016-10-17] MEDS: LOSARTAN 50 MG TAB PO SCH (08:50)
[2016-10-17] MEDS ORDERED: POTASSIUM CHLORIDE (SR) 20 MEQ TAB PO STA (14:04)
--- NOTE | 2016-10-17 14:05 | PDOCDIS ---
Discharge Instructions CONDITION Patient Condition: Stable HOME CARE INSTRUCTIONS: Special Diet: 2gna low chol NEO ALMANZA Oct 17, 2016 14:05
--- NOTE | 2016-10-17 14:15 | DS ---
Date/Time of Note Date/Time of Note DATE: 10/17/16 TIME: 14:10 Discharge Summary Admission/Discharge Info Admit Date/Time Oct 13, 2016 at 12:28 Discharge Date/Time Discharge Diagnosis -Status post fall with subsequent fractures of the pubic symphysis and superior pubic ramus bilaterally, conservative treatment -Continue pain management, will avoid opiates and continue with ibuprofen 600 p.o. 3 times daily as needed, continue physical therapy. - Altered level status: Likely secondary to fracture/reaction to morphine. Slowly improving - Diabetes mellitus type 2 - Hypertension, continue Cozaar - Dyslipidemia, continue statin - Osteoporosis: Monitor Patient Condition: Stable Hx of Present Illness . Hospital Course This is a 85 years old female was admitted with bilateral groin pain and pelvis pain sec to fall at home. During assessment, patient was alert, responsive, followed commands initially. Denies any chest pain, shortness of breath, dizziness, palpitations, fever, headache, focal weakness or numbness, abdominal pain . nausea/ vomitting, recent travel. He was found on imaging studies with positive fractures of the pubic symphysis and superior pubic ramus bilaterally. Patient was admitted to medical surgical floor, determined not to be a surgical candidate for orthopedic surgery. She had some delusions and hallucinations, thought to be secondary early on in her admission to opiate medications given as well as her acute fracture. She used Seroquel at night which helped control her symptoms and they slowly improved as she had less hallucinations symptoms; she also required one-to-one sitter but that was stopped 24 hours prior to discharge. Over the course of her hospital stay her pain control symptoms were controlled with NSAIDs, she was able to ambulate with assistance of physical therapy and did better each day, she was able to tolerate a p.o. diet. She will be discharged to long term facility today in improved condition where she will need to continue to wear pelvic brace and continue physical therapy there. She will continue her p.o. diabetic medications there. It is recommended that she must avoid using opiate medications secondary to hallucination side effects. See printed medical reconciliation sheet for full list of discharge medications. Home Meds Reported Medications Diphenoxylate HCl/Atropine (Lomotil 2.5-0.025 mg Tablet) 1 Each Tablet, 1 TAB PO Q8 Y for DIARRHEA, TAB 10/13/16 Canagliflozin (Invokana) 100 Mg Tablet, 100 MG PO DAILY, TAB 10/13/16 Oxybutynin Chloride* (Ditropan* XL) 5 Mg Tabsr, 5 MG PO DAILY, TAB.SA 10/13/16 Escitalopram Oxalate* (Lexapro*) 5 Mg Tablet, 5 MG PO DAILY, #30 TAB 10/13/16 Amlodipine Besylate* (Norvasc*) 5 Mg Tablet, 5 MG PO DAILY, TAB 10/13/16 Losartan Potassium* (Losartan Potassium*) 50 Mg Tablet, 50 MG PO DAILY, TAB 10/13/16 Glimepiride* (Glimepiride*) 2 Mg Tablet, 2 MG PO WITH BREAKFAST DINNE, TAB 10/13/16 Sitagliptin* (Januvia*) 100 Mg Tablet, 100 MG PO DAILY, #30 TAB 10/13/16 Ranitidine Hcl* (Ranitidine Hcl*) 150 Mg Tablet, 150 MG PO Q12, #60 TAB 10/13/16 Discontinued Reported Medications [No New Meds] No Conflict Check 07/20/11 Triamterene-HCTZ (Triamterene-HCTZ) 1 Cap Capsule 04/15/10 Glipizide* (Glucotrol XL*) 2.5 Mg Tabsr 04/15/10 Metformin* (Glucophage*) 1,000 Mg Tablet 04/15/10 Primary Care Provider Tavia Mathew DO Time spent on discharge: > 30 minutes Pending Labs Laboratory Tests Test 10/16/16 17:43 10/16/16 21:08 10/17/16 05:09 10/17/16 06:42 Bedside Glucose 188mg/dL (70-220) 127mg/dL (70-220) White Blood Count 9.210^3/ul (4.8-10.8) Red Blood Count 3.3110^6/ul (4.20-5.40) Hemoglobin 9.5g/dl (12.0-16.0) Hematocrit 29.6% (37.0-47.0) Mean Corpuscular Volume 89.4fl (82.0-101.0) Mean Corpuscular Hemoglobin 28.7pg (29.0-33.0) Mean Corpuscular Hemoglobin Concent 32.1g/dl (32.0-37.0) Red Cell Distribution Width 13.9% (11.5-14.5) Platelet Count 09838^3/UL (140-415) Mean Platelet Volume 13.0fl (7.4-10.4) Neutrophils % 63.2% (39.0-77.0) Lymphocytes % 18.8% (15.0-51.0) Monocytes % 13.2% (0.0-11.0) Eosinophils % 3.9% (0.0-7.0) Basophils % 0.5% (0.0-2.0) Nucleated Red Blood Cells % 0.0/100WBC (0.0-0.0) Neutrophils # (Manual) 5.810^3/ul (1.7-7.5) Lymphocytes # 1.710^3/ul (0.8-2.9) Monocytes # 1.210^3/ul (0.3-0.9) Eosinophils # 0.410^3/ul (0.0-0.5) Basophils # 0.110^3/ul (0.0-0.1) Nucleated Red Blood Cells # 0.010^3/ul (0.0-0.0) Sodium Level 146mmol/L (135-144) Potassium Level 3.2mmol/L (3.5-5.1) Chloride Level 104mmol/L (97-110) Carbon Dioxide Level 30mmol/L (21-31) Anion Gap 15 (8-16) Blood Urea Nitrogen 22mg/dl (7-20) Creatinine 0.71mg/dl (0.44-1.00) Glucose Level 47mg/dl (70-220) 57mg/dl (70-220) Calcium Level 8.4mg/dl (8.4-10.2) Phosphorus Level 3.5mg/dl (2.5-4.9) Magnesium Level 2.2mg/dl (1.7-2.5) Test 10/17/16 06:53 10/17/16 07:07 10/17/16 07:21 10/17/16 08:30 Bedside Glucose 69mg/dL (70-220) 93mg/dL (70-220) 139mg/dL (70-220) 133mg/dL (70-220) Test 10/17/16 12:59 Bedside Glucose 179mg/dL (70-220) NEO ALMANZA Oct 17, 2016 14:15
[2016-10-17 14:40] VITALS: BP 128/55; RESP 18
[2016-10-17] MEDS ORDERED: LINAGLIPTIN 5 MG TABLET PO SCH (15:00)
[2016-10-17] MEDS: ATORVASTATIN 10 MG TAB PO SCH (20:10)
[2016-10-17 20:22] VITALS: BP 112/58; RESP 18
[2016-10-18] MEDS ORDERED: LINAGLIPTIN 5 MG TABLET PO SCH (09:00)
== END 2016-10-17 21:30 | DRG 535 ==
LOC: E/R 18:53 → MS1 10-13 12:28
PROVIDERS: ADMIT Internal Medicine; ATTEND Internal Medicine
DX: S32.591A Other specified fracture of right pubis, initial encounter for closed fracture (principal); G93.41 Metabolic encephalopathy; D69.6 Thrombocytopenia, unspecified; E11.9 Type 2 diabetes mellitus without complications; I10 Essential (primary) hypertension; D64.9 Anemia, unspecified; E78.5 Hyperlipidemia, unspecified; S32.592A Other specified fracture of left pubis, initial encounter for closed fracture; M81.0 Age-related osteoporosis without current pathological fracture; Z87.891 Personal history of nicotine dependence; Y93.01 Activity, walking, marching and hiking; K29.70 Gastritis, unspecified, without bleeding; T40.2X5A Adverse effect of other opioids, initial encounter; Y92.230 Patient room in hospital as the place of occurrence of the external cause; W01.0XXA Fall on same level from slipping, tripping and stumbling without subsequent striking against object, initial encounter; Y92.512 Supermarket, store or market as the place of occurrence of the external cause
CPT/HCPCS: 72170; 72193; 80048; 80053; 80061; 82947; 82962; 83036; 83735; 84100; 85025; 92610; 97110; 97116; 97161; 97530; J0360; J1650; J1815; J1885; J2270